=== PATIENT | female | born 1975 | race Caucasian/White ===

== ENCOUNTER 2017-01-05 19:15 | Emergency (ER) | payer MEDICAID ==
[2017-01-05 19:28] VITALS: BP 155/92; RESP 16; TEMP 97.9
--- NOTE | 2017-01-05 21:45 | EDPHY ---
H & P Stated Complaint: R ankle pain radiating to leg after kicking stump out of ground > 24 hr ago HPI/ROS: Chief complaint: Right ankle and foot pain History of present illness: This is a 41-year-old female who presents to the emergency department for evaluation of right ankle and foot pain. Approximately 1 day ago she twisted her ankle on a tree root. Since then she has had pain and swelling to the outer aspect of her ankle and inner aspect of her foot. It makes it difficult to ambulate. She denies open wounds. She denies paresthesias or abnormal coolness. No report of trauma to other parts of the body. - Personal History LMP (Females 10-55): Now Current Tetanus/Diphtheria Vaccine: Yes Current Tetanus Diphtheria and Acellular Pertussis (TDAP): Yes - Medical/Surgical History Hx Asthma: Yes Hx Chronic Respiratory Disease: No Hx Diabetes: No Hx Cardiac Disease: No Hx Renal Disease: No Hx Cirrhosis: No Hx Alcoholism: Yes Hx HIV/AIDS: No Hx Splenectomy or Spleen Trauma: No Other PMH: Degenerative disc disease, incontinence, endometrosis, PTSD, MS, asthma, hx IV meth use - Social History Smoking Status: Heavy smoker - Physical Exam Exam: General appearance: Alert, nontoxic Musculoskeletal: Mild edema around the lateral malleolus. There is tenderness to the medial aspect of the foot and lateral aspect of the ankle.The lower leg and knee are nontender. She is moving the digits of the right foot, right ankle and right knee well. Muscle compartments soft. No tenderness over the Achilles. Neurologic exam: The patient has normal sensation and motor function distal to the injury. Vascular exam: Normal pulses and capillary refill in the foot Constitutional: Initial Vital Signs Temperature (C) 36.6 C 01/05/17 19:24 Heart Rate 88 01/05/17 19:24 Respiratory Rate 16 01/05/17 19:24 Blood Pressure 155/92 H 01/05/17 19:24 O2 Sat (%) 96 01/05/17 19:24 O2 Delivery Mode Room Air Allergies/Adverse Reactions: baclofen Allergy (Verified 08/24/15 19:27) Penicillins Allergy (Verified 08/24/15 19:27) Home Medications: Medication Instructions Recorded Albuterol 01/05/17 Cyclobenzaprine 01/05/17 Meloxicam 01/05/17 Medical Decision Making - Diagnostics Imaging: X-ray series of the right foot and ankle negative for acute findings Procedures: Procedure: Splint placement. A Sargent boot splint was applied. After application of the splint I returned and re-examined the patient. The splint was adequately immobilizing the joint and distal to the splint the patient's circulation and sensation was intact. ED Course/Re-evaluation: Patient seen under the supervision of my primary supervising physician Dr. Karen Gutierrez. Patient presents to the emergency department for pain to her right foot and ankle after injuring it yesterday. Her right lower extremity is neurovascularly intact. She has good musculoskeletal control. X-ray series are negative. She is placed in a Sargent boot for comfort. Home care is discussed. She is asked to follow up with a primary care doctor for recheck. Return precautions are given. Patient voiced understanding and agreement with plan. Differential Diagnosis: Included but not limited to contusion, sprain or strain, fracture Departure - Departure Disposition: Home, Routine, Self-Care Clinical Impression: Ankle sprain Qualifiers: Encounter type: initial encounter Involved ligament of ankle: unspecified ligament Laterality: right Qualified Code(s): S93.401A - Sprain of unspecified ligament of right ankle, initial encounter Condition: Good Instructions: Ankle Sprain (ED) Additional Instructions: Follow-up with your primary care doctor for recheck If symptoms worsen or new symptoms develop return to the emergency department for recheck Referrals: [facility] [Other] - As per Instructions
[2017-01-05 22:06] VITALS: PULSE 78; O2SAT 93
== END 2017-01-05 22:05 | disposition home or self-care (01) ==
LOC: EDUNIT#
DX: S93.401A Sprain of unspecified ligament of right ankle, initial encounter (principal); J45.909 Unspecified asthma, uncomplicated; F17.200 Nicotine dependence, unspecified, uncomplicated; W22.8XXA Striking against or struck by other objects, initial encounter

== ENCOUNTER 2017-07-05 12:03 | Emergency (ER) | payer MEDICAID ==
--- NOTE | 2017-07-05 13:39 | EDPHY ---
H & P Time Seen by Provider: 07/05/17 13:28 HPI/ROS: CHIEF COMPLAINT: Left foot injury HISTORY OF PRESENT ILLNESS: 41-year-old female presents to the emergency department by private vehicle with injury to her left foot. The patient states 2 days ago she had a heavy ceramic bowl fall on the dorsal aspect of her left foot. She was able to ambulate, however this causes a lot of pain. She states last night she was barefoot outside on her deck and something went into her left heel. They tried to date this out at home without success. She complains of extreme pain in her left foot and inability to walk. She believes her tetanus shot is current. ROS: Denies numbness or tingling in her toes, pain in her left ankle or hip. Denies left knee pain. Past Medical/Surgical History: Degenerative disc disease, incontinence, endometriosis, PTSD, IV meth abuse, MS , asthma Social History: Single Smoking Status: Heavy smoker Physical Exam: Examination of the left foot reveals some ecchymosis to the dorsal aspect of her left foot. She has tenderness with palpation over the 2nd and 3rd metatarsals. No abrasion noted to the top of her foot. She has limited range of motion secondary to pain. She has a small puncture wound noted on the plantar aspect of her heel. Diffusely tender to palpate. No obvious visible foreign body noted. No other palpable bony tenderness. Constitutional: Initial Vital Signs Temperature (C) 37 C 07/05/17 12:06 Heart Rate 86 07/05/17 12:06 Respiratory Rate 16 07/05/17 12:06 Blood Pressure 96/64 L 07/05/17 12:06 O2 Sat (%) 95 07/05/17 12:06 O2 Delivery Mode Room Air Allergies/Adverse Reactions: baclofen Allergy (Verified 07/05/17 12:10) Penicillins Allergy (Verified 07/05/17 12:10) Home Medications: Medication Instructions Recorded Cephalexin [Keflex] 500 mg PO QID #28 cap 07/05/17 MDM/Departure - MDM Imaging Results: Imaging Impressions Foot X-Ray 07/05/17 13:20 Impression: Nothing acute radiographically. Imaging: I viewed and interpreted images myself Procedures: After consent was obtained from the patient, the skin was cleansed with chlorhexidine and small amount of 1% lidocaine with epinephrine was instilled into the puncture wound to the plantar aspect of the left heel. A piece of wood was removed. No obvious retained foreign body visualized. The wound was then thoroughly irrigated, bacitracin and bandage applied. Patient tolerated this well. Medications Given: Discontinued Medications Ibuprofen (Motrin) 600 mg PO EDNOW ONE Stop: 07/05/17 15:09 Last Admin: 07/05/17 15:17 Dose: 600 mg ED Course/Re-evaluation: 41-year-old female presents to the emergency department with pain to the top of her foot and the plantar aspect of her left heel. She was concerned about possible retained foreign body. X-rays of the left foot reveal no fractures and specifically no radiopaque foreign body. The foreign body was removed, see procedure note. She was feeling much better. She will be started on Keflex. She does have a known penicillin allergy although it just makes her nauseous. She denies any rash, dysphagia or swelling with taking penicillin. She was given wound care precautions. She will continue to soak her foot in warm water. - Depart Disposition: Home, Routine, Self-Care Clinical Impression: Foreign body in left foot Qualifiers: Encounter type: initial encounter Qualified Code(s): S90.852A - Superficial foreign body, left foot, initial encounter Contusion of left foot Qualifiers: Encounter type: initial encounter Qualified Code(s): S90.32XA - Contusion of left foot, initial encounter Condition: Good Instructions: Soft Tissue Foreign Body (ED), Contusion in Adults (ED), Acute Wounds (ED) Additional Instructions: Ibuprofen 600mg every 8 hours for pain as directed. Soak your foot in warm water 2-3 times daily for the next 2 days. Apply antibiotic ointment to puncture wound. Return if you develop increased redness, fever, red streaking up your foot, or if you feel worse in any way. Prescriptions: Cephalexin [Keflex] 500 mg PO QID #28 cap Referrals: Ritu Cotton MD [Medical Doctor] - As per Instructions
[2017-07-05] MEDS ORDERED: IBUPROFEN 600 MG TAB PO ONE (15:08)
[2017-07-05 15:29] VITALS: BP 135/85; PULSE 85; RESP 18; TEMP 98.2; O2SAT 96
== END 2017-07-05 15:26 | disposition home or self-care (01) ==
PROC: 3E0T3BZ Introduction of Anesthetic Agent into Peripheral Nerves and Plexi, Percutaneous Approach (ICD-10-PCS; principal; 2017-07-05)
DX: S90.852A Superficial foreign body, left foot, initial encounter (principal); S90.32XA Contusion of left foot, initial encounter; J45.909 Unspecified asthma, uncomplicated; W20.8XXA Other cause of strike by thrown, projected or falling object, initial encounter; F17.200 Nicotine dependence, unspecified, uncomplicated

== ENCOUNTER → 2018-01-17 | Outpatient (CLI) | payer MEDICAID | LOC: FIMAGING 13:41 | PROVIDERS: ATTEND Physician Assistant | DX: R76.11 Nonspecific reaction to tuberculin skin test without active tuberculosis (principal) ==

== ENCOUNTER 2018-04-04 15:09 | Emergency (ER) | payer MEDICAID ==
--- NOTE | 2018-04-04 16:20 | EDPHY ---
H & P Stated Complaint: Three days history of body pain Source: Patient, Old records Exam Limitations: No limitations - Personal History LMP (Females 10-55): 1-7 Days Ago Current Tetanus Diphtheria and Acellular Pertussis (TDAP): Yes Tetanus Vaccine Date: < 10 YEARS - Medical/Surgical History Hx Asthma: Yes Hx Chronic Respiratory Disease: No Hx Diabetes: No Hx Cardiac Disease: No Hx Renal Disease: No Hx Cirrhosis: No Hx Alcoholism: Yes Hx HIV/AIDS: No Hx Splenectomy or Spleen Trauma: No Other PMH: Degenerative disc disease, incontinence, endometrosis, PTSD, MS, asthma, hx IV meth use - Social History Smoking Status: Heavy smoker Time Seen by Provider: 04/04/18 15:51 HPI/ROS: HPI: This is a 42-year-old female who presents with Chief Complaint: Increased right lower back and right leg pain over 3 days. Location: Lumbar back Quality: Strain and pain Duration: Since Monday ( days) Signs and Symptoms: No bleeding, + radiation, no numbness, no weakness, + tingling, no incontinence, + decreased range of motion, no swelling, + pain, no fever, no dysuria Timing: Acute Severity: 06/01 Context: Patient presents with her friend to help her bus stop into the emergency room with complaints right lower back strain that occurred Monday. She reports that she was reaching up into a cabinet and sneezed at the same time and felt a pulling sensation in her right lower back. Since that time she has developed decreased range of motion primarily extension and lateral rotation accompanied by right radiculopathy all the way down her anterior and posterior right leg down into her toes. She complains of numbness and tingling in her right foot. She reports that she is originally from [place], [place] and was being seen by pain management. Approximately 3 years ago she was told by her pain management doctor that she may have undiagnosed MS. She has never received an actual diagnosis of MS or workup. She does not see a regular doctor and believes in using natural methods to control her symptoms primarily CBD oil. She reports that she has difficulty getting off an onto the toilet but she is able to have bowel movements and urinate without any difficulty or incontinence. She reports that she was told that she had a history of lumbar degenerative disc disease. LMP 1-7 days ago. Modifying Factors: CBD oil with no relief Comment: ROS: see HPI Constitutional: No fever, no chills, no weight loss Eyes: No blurred vision Respiratory: No shortness of breath, no cough Cardiovascular: No chest pain Gastrointestinal: No nausea, no vomiting no diarrhea Genitourinary: No dysuria Extremities: No myalgias Neurologic: No weakness, no numbness Skin: No rashes Hematologic: No bruising, no bleeding MEDICAL/SURGICAL/SOCIAL HISTORY: Medical history: Degenerative disc disease, incontinence, endometriosis, PTSD, MS, asthma, hx IV meth use Surgical history: Bilateral tubal ligation Social history: Transient. CONSTITUTIONAL: Nontoxic appearing middle-aged white female accompanied by her friend. awake and alert, no obvious distress HEENT: Atraumatic and normocephalic. NECK: supple, no midline tenderness, No meningismus. Cardiovascular: Normal S1/S2, regular rate, regular rhythm, without murmur rub or gallop. PULMONARY/CHEST: Symmetrical and nontender. no crepitus. Clear to auscultation bilaterally. Good air movement. No accessory muscle usage. ABDOMEN: Soft, nondistended, nontender, no ecchymosis. PELVIC: no pain with rocking; bilateral hips flexion 125 degrees, extension 30 degrees, with no pain internal rotation and no pain external rotation. BACK: No midline tenderness, mid lumbar reproducible paraspinous muscle tenderness on the right side, no paraspinous spasm, deep tendon reflexes 2/2, moderate right-sided pain with straight leg raise, patient is only able to raise her right leg approximately 15 off the ER stretcher. No foot drop. Achilles reflexes are equal bilaterally. Able to walk on heels and toes without difficulty. EXTREMITIES: 2/2 pulses, strength 5/5, no deformities, no clubbing, no cyanosis or edema. NEUROLOGICAL: no focal neuro deficits. GCS 15. Light touch sensation intact. SKIN: Warm and dry, no erythema. no rash. Good capillary refill. (Leslie,Terra) Constitutional: Initial Vital Signs Temperature (C) 36.3 C 04/04/18 15:12 Heart Rate 84 04/04/18 15:12 Respiratory Rate 18 04/04/18 15:12 Blood Pressure 99/79 L 04/04/18 15:12 O2 Sat (%) 94 04/04/18 15:12 O2 Delivery Mode Room Air Allergies/Adverse Reactions: baclofen Allergy (Verified 07/05/17 12:10) Penicillins Allergy (Verified 07/05/17 12:10) Home Medications: Medication Instructions Recorded Ibuprofen 04/04/18 Metaxalone [Skelaxin 800 mg (*)] 800 mg PO TID PRN #12 tab 04/04/18 methylPREDNISolone [Medrol Dose 1 each PO AD #0 ea 04/04/18 Clif] traMADol [Ultram 50 mg (*)] 50 mg PO Q4 PRN #10 tab 04/04/18 Medical Decision Making - Diagnostics Imaging Results: Imaging Impressions Lumbar Spine MRI 04/04/18 16:25 Impression: Multilevel degenerative disk and degenerative joint disease lumbar spine at L3-L4 through L5-S1. There has been mild progression at L5-S1 where the left parasagittal protrusion and annular tear has minimally increased in size causing a little more compression of the descending left S1 nerve root at the lateral recess. Results called and discussed with Carla Nelson PA-C, on April 04, 2018 at 1746. E:amm ED Course/Re-evaluation: Due to the patient's inability to ambulate and significant pain, MRI lumbar spine ordered. History of tubal ligation and test not indicated. 1630: Patient was given IV Decadron 8 mg, IV Valium 5 mg, IV Dilaudid 1 mg and p.o. Gabapentin 600 mg 1744: Called by radiologist who advised that MRI lumbar spine shows L5-S1 with mild disc protrusion and degenerative changes but no significant canal stenosis , no significant foraminal stenosis, and no signs of cauda equina syndrome. 1815: Road test performed and patient able to ambulate without significant difficulty. MRI on disc provided to patient per request. Prescription given for Medrol Dosepak, Skelaxin, and tramadol with referral to Neurosurgery if needed. This patient was seen under the supervision of my secondary supervising physician. I evaluated care for this patient independently. Discussed this patient with Dr. Mcfarlane who did not see the patient. (Carla Nelson) I did not see this patient while she was in the emergency department. However her care was discussed with the PA while the patient was in the department. I agree with treatment plan and management (Alan Mcfarlane) Differential Diagnosis: Back pain including but not limited to muscular pain, herniated disc, spine fracture, intra-abdominal causes and urinary tract infection. (Carla Nelson) - Data Points Medications Given: Discontinued Medications Dexamethasone (Decadron Injection) 8 mg IVP EDNOW ONE Stop: 04/04/18 16:26 Last Admin: 04/04/18 17:05 Dose: 8 mg Diazepam (Valium) 5 mg IVP EDNOW ONE Stop: 04/04/18 16:26 Last Admin: 04/04/18 17:05 Dose: 5 mg Gabapentin (Neurontin) 600 mg PO EDNOW ONE Stop: 04/04/18 16:26 Last Admin: 04/04/18 17:08 Dose: Not Given Hydromorphone HCl (Dilaudid) 1 mg IVP EDNOW ONE Stop: 04/04/18 16:27 Last Admin: 04/04/18 18:06 Dose: 1 mg Departure - Departure Disposition: Home, Routine, Self-Care Clinical Impression: Degenerative disc disease at L5-S1 level, Right lumbosacral radiculopathy Condition: Good Instructions: Lumbar Radiculopathy (ED), Degenerative Disc Disease (ED) Additional Instructions: Take all medications as directed. Activity: Limit activity to pain tolerance. Activity resulting in pain should be avoided. Follow-up with primary care provider in 3-4 days if not improved and with Neurosurgery in 1-2 weeks if symptoms persist. Return to the ER immediately if you have new or worsening back pain, fevers/ chills, flu like symptoms, incontinence or inability to urinate or defecate, weakness, paralysis, or any other symptom that concerns you Referrals: [facility] [Other] - 3-4 days, if not improved Paula Breaux DO [Doctor of Osteopathy] - As per Instructions Prescriptions: Metaxalone [Skelaxin 800 mg (*)] 800 mg PO TID PRN #12 tab PRN Reason: Spasms methylPREDNISolone [Medrol Dose Clif] 1 each PO AD #0 ea traMADol [Ultram 50 mg (*)] 50 mg PO Q4 PRN #10 tab PRN Reason: Pain, Severe
[2018-04-04] MEDS ORDERED: DIAZEPAM 5 MG/ML 1 ML SYR IVP ONE (16:25)
[2018-04-04] MEDS ORDERED: DEXAMETHASONE 4 MG/ML VIAL IVP ONE (16:25)
[2018-04-04] MEDS ORDERED: GABAPENTIN 300 MG CAP PO ONE (16:25)
[2018-04-04] MEDS ORDERED: HYDROmorphONE/DILAUDID 2 MG/ML INJ IVP ONE (16:26)
[2018-04-04] MEDS ORDERED: HYDROmorphONE/DILAUDID 1 MG/ML INJ ONE (18:04)
[2018-04-04 19:12] VITALS: BP 105/64
== END 2018-04-04 19:09 | disposition home or self-care (01) ==
DX: M51.36 Other intervertebral disc degeneration, lumbar region (principal); M54.16 Radiculopathy, lumbar region; J45.909 Unspecified asthma, uncomplicated; F17.200 Nicotine dependence, unspecified, uncomplicated
CPT/HCPCS: 96374; J1100; J1170; J3360